=== PATIENT | male | born 1980 | race Caucasian/White ===

== ENCOUNTER 2021-04-22 20:04 | Emergency (ER) | payer MEDICARE, MEDICAID ==
[~2021-04-22] VITALS: Ht 180.3 cm; Wt 108.0 kg
[2021-04-22] MEDS ORDERED: ASPIRIN 81 MG CHEW TABLET PO ONE (20:15)
[2021-04-22] MEDS ORDERED: FAMOTIDINE 20 MG TAB PO ONE (20:15)
[2021-04-22 20:23] VITALS: BP 137/82
[2021-04-22] MEDS ORDERED: BRIL90TA PO (20:35)
[2021-04-22] MEDS ORDERED: ECOT81TA5 PO (20:35)
[2021-04-22] MEDS ORDERED: INSUHUMDS SC (20:35)
[2021-04-22] MEDS ORDERED: METO200T28 PO (20:35)
[2021-04-22] MEDS ORDERED: NIFE90TA20 PO (20:35)
[2021-04-22] MEDS ORDERED: SENS90TA PO (20:35)
[2021-04-22] MEDS ORDERED: AMIT25TA17 PO (20:35)
[2021-04-22] MEDS ORDERED: GABA-283 PO (20:35)
[2021-04-22] MEDS ORDERED: ATOR80TA59 PO (20:35)
[2021-04-22] MEDS ORDERED: [UNRECOGNIZED DRUG - CODE] PO (20:35)
[2021-04-22] MEDS ORDERED: KEPP1TAB PO (20:35)
[2021-04-22] MEDS ORDERED: PEPC1TAB5 PO (20:36)
[2021-04-22 20:54] LABS: BASO # 0.1 10^3/uL (0.0-0.2); BASO % 1.2 % (0.0-1.0); EOS # 0.2 10^3/uL (0.0-0.5); HEMATOCRIT 39.6 % (42.0-52.0); HEMOGLOBIN 12.6 g/dl (13.5-17.5); LYMPH # 1.7 10^3/uL (1.5-5.0); LYMPH % 23.5 % (24.0-44.0); MEAN CORPUSCULAR HEMOGLOBIN 31.5 pg (27.0-33.0); MEAN CORPUSCULAR HGB CONC 31.8 g/dl (32.0-36.5); MONO # 0.8 10^3/uL (0.0-0.8); MONO % 10.2 % (2.0-8.0); NEUTROPHILS # 4.6 10^3/uL (1.5-8.5); NEUTROPHILS % 62.4 % (36.0-66.0); PLATELET COUNT, AUTOMATED 278 10^3/uL (150-450); WHITE BLOOD COUNT 7.4 10^3/uL (4.0-10.0)
[2021-04-22 21:05] LABS: INR 0.92; PARTIAL THROMBOPLASTIN TIME 25.3 SECONDS (24.2-38.5); PROTHROMBIN TIME 12.5 SECONDS (12.5-14.3)
[2021-04-22 21:21] LABS: ALBUMIN 3.9 GM/DL (3.2-5.2); BILIRUBIN,DIRECT 0.1 MG/DL (0.0-0.2); BILIRUBIN,TOTAL 0.4 MG/DL (0.2-1.0); CALCIUM LEVEL 8.3 MG/DL (8.5-10.1); CK-MB VALUE MASS 13.4 NG/ML (<3.6); CREATININE FOR GFR 6.44 MG/DL (0.70-1.30); GLOMERULAR FILTRATION RATE 10.4 (>60); MB/CK RELATIVE INDEX 8.27 (< OR =4); POTASSIUM SERUM 4.8 MEQ/L (3.5-5.1); TOTAL PROTEIN 8.1 GM/DL (6.4-8.2); TROPONIN I 0.04 NG/ML (< 0.10)
--- NOTE | 2021-04-22 22:23 | REPVR ---
PROCEDURE INFORMATION: Exam: XR Chest Exam date and time: 04/22/2021 8:32 PM Age: 40 years old Clinical indication: Chest pain TECHNIQUE: Imaging protocol: XR of the chest. Views: 1 view. COMPARISON: No relevant prior studies available. FINDINGS: Tubes, catheters and devices: There is a dual lumen right internal jugular central venous line that terminates in the junction of the superior vena cava and right atrium. Lungs: There are linear densities in both lung bases, which may represent atelectasis or scarring. No lung consolidation or pulmonary edema is noted. Pleural spaces: Unremarkable. No pleural effusion. No pneumothorax. Heart/Mediastinum: Unremarkable. No cardiomegaly. Bones/joints: Unremarkable. IMPRESSION: No radiographic evidence for an acute cardiopulmonary process. Electronically signed by: Eddie Munguia On 04/22/2021 22:23:49 PM
--- NOTE | 2021-04-23 07:51 | ECGEPIP ---
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
== END 2021-04-22 22:12 | disposition left against medical advice (07) ==
LOC: M ED 20:04
DX: I20.0 Unstable angina (principal); I25.10 Atherosclerotic heart disease of native coronary artery without angina pectoris; E10.9 Type 1 diabetes mellitus without complications; I10 Essential (primary) hypertension; N18.6 End stage renal disease; I25.2 Old myocardial infarction; Z86.718 Personal history of other venous thrombosis and embolism; Z79.899 Other long term (current) drug therapy; Z79.4 Long term (current) use of insulin